=== PATIENT | male | born 1940 | race Caucasian/White ===

== ENCOUNTER 2018-02-12 05:50 | Day surgery (SDC) | payer BC, MEDICARE ==
[2018-02-11 12:21] LABS: BASOPHILS % (AUTO) 0.3 % (0-1); EOSINOPHILS # (AUTO) 0.1 X10'3 (0-0.9); HEMATOCRIT 45.9 % (42.0-52.0); HEMOGLOBIN 15.6 g/dl (14.0-17.9); LYMPHOCYTES # (AUTO) 1.5 X10'3 (1.1-4.8); LYMPHOCYTES % (AUTO) 31.6 % (21-51); MEAN CORPUSCULAR HEMOGLOBIN 31.7 PG (27.0-31.0); MEAN CORPUSCULAR VOLUME 93.1 FL (78-98); MONOCYTES # (AUTO) 0.4 X10'3 (0-0.9); MONOCYTES % (AUTO) 7.7 % (2-12); NEUTROPHILS # (AUTO) 2.8 X10'3 (1.8-7.7); NEUTROPHILS % (AUTO) 58.4 % (42-75); PLATELET COUNT 167 X10'3 (140-440); RED BLOOD COUNT 4.93 X10'6 (4.70-6.10); RED CELL DISTRIBUTION WIDTH 13.6 % (11.5-14.5); WHITE BLOOD COUNT 4.8 X10'3 (4.5-11.0)
[2018-02-11 12:34] LABS: PARTIAL THROMBOPLASTIN TIME 26 SECONDS (22-32); PROTHROMBIN TIME 10.3 SECONDS (9.0-12.0)
[2018-02-11 12:40] LABS: ANION GAP 9 (8-16); BLOOD UREA NITROGEN 22 MG/DL (7-18); BUN/CREATININE RATIO 19.8 (5.4-32.0); CHLORIDE 104 MMOL/L (99-107); CREATININE 1.11 MG/DL (0.60-1.10); GLUCOSE 101 MG/DL (70-104); POTASSIUM 4.1 MMOL/L (3.5-5.1); SODIUM 139 MMOL/L (135-145); TOTAL CARBON DIOXIDE 25.6 MMOL/L (24-32); eGFR 64 ML/MIN
[2018-02-11 12:41] LABS: ALBUMIN 3.7 G/DL (3.4-5.0); CALCIUM 8.8 MG/DL (8.5-10.1)
[2018-02-12] VITALS (12 sets, daily range): BP systolic 110–131; BP diastolic 57–77
[~2018-02-12] VITALS: Ht 180.3 cm; Wt 98.7 kg
[2018-02-12] MEDS ORDERED: TEST5GEL2 TOP (06:00)
[2018-02-12] MEDS ORDERED: MULT1TAB74 PO (06:00)
[2018-02-12] MEDS ORDERED: LORazepam 0.5 MG tablet PO PRN (06:15)
[2018-02-12] MEDS ORDERED: normal saline 1000ml 1,000 ML IV SCH (06:15)
[2018-02-12] MEDS ORDERED: diphenhydrAMINE 25mg capsule PO PRN (06:15)
[2018-02-12] MEDS ORDERED: nitroGLYCERIN-Tridil 50MG/D5W 250 ML IV ONE (07:36)
[2018-02-12] MEDS ORDERED: fentaNYL/PF 50MCG/1 ML 2ML syringe ONE (07:37)
[2018-02-12] MEDS ORDERED: midazolam 2 mg/2 ml injection ONE (07:37)
[2018-02-12] MEDS ORDERED: LIDOcaine 1% w/EPI 1:100,000 30ml vial (MDV) ONE (07:37)
[2018-02-12] MEDS ORDERED: iohexol 350 MG/ML 50ML vial IV ONE (07:37)
[2018-02-12] MEDS ORDERED: iohexol 350MG/ML 100ml bottle IV ONE (07:37)
[2018-02-12] MEDS ORDERED: heparin 1,000unit/ml 10ml vial 10 ML ONE (07:37)
== END 2018-02-12 15:02 | disposition home or self-care (01) ==
LOC: SSTAY O 05:50
PROVIDERS: ATTEND Internal Medicine Cardiovascular Disease
DX: I25.10 Atherosclerotic heart disease of native coronary artery without angina pectoris (principal); G47.33 Obstructive sleep apnea (adult) (pediatric); N40.0 Benign prostatic hyperplasia without lower urinary tract symptoms; Z79.899 Other long term (current) drug therapy; Z96.619 Presence of unspecified artificial shoulder joint; Z96.649 Presence of unspecified artificial hip joint; Z96.659 Presence of unspecified artificial knee joint; Z82.49 Family history of ischemic heart disease and other diseases of the circulatory system
CPT/HCPCS: 36415; 80048; 85025; 85610; 85730; 93005; 93458; 99152; 99153; A6257; C1769; J1644; J2250; J3010; J3490; J7030; Q0163; Q9967; A4620

== ENCOUNTER 2019-12-04 15:17 | Emergency (ER) | payer BC, MEDICARE ==
[~2019-12-04] VITALS: Ht 180.3 cm; Wt 87.2 kg
[~2019-12-04 15:17] MED LIST: MULT1TAB74 PO; TEST5GEL2 TOP
[2019-12-04 15:48] VITALS: BP 113/71
[2019-12-04] MEDS ORDERED: TETanus/Pertussis (Acell)/Diphther VAC/PF (Tdap-Adult) 0.5ml syringe IMVAC ONE (17:20)
[2019-12-04] MEDS ORDERED: bacitracin 15gm ointment TP ONE (17:20)
== END 2019-12-04 18:35 | disposition home or self-care (01) ==
LOC: ER 15:18
DX: S09.90XA Unspecified injury of head, initial encounter (principal); R51 Headache; Z79.899 Other long term (current) drug therapy; W01.198A Fall on same level from slipping, tripping and stumbling with subsequent striking against other object, initial encounter; Y93.89 Activity, other specified; Y92.89 Other specified places as the place of occurrence of the external cause; Y99.8 Other external cause status
CPT/HCPCS: 70450; 90471; 90715; 99284

== ENCOUNTER 2022-05-30 12:13 | Emergency (ER) | payer MEDICARE ==
[~2022-05-30] VITALS: Ht 180.3 cm; Wt 93.0 kg
[~2022-05-30 12:13] MED LIST changes: +MULT-620 PO; -MULT1TAB74 PO
--- NOTE | 2022-05-30 12:55 | NUR ---
PT IN ROOM 18 ON COVID PRECAUTIONS, ON 2L 02 NASAL CANNULA, RESP EVEN AND UNLABORED, SKIN P/W/D, AT BEDSIDE PT HAS ALZHEIMERS AND IS CONFUSED
[2022-05-30 13:38] LABS: BASOPHILS % (AUTO) 0.3 % (0-1); EOSINOPHILS % (AUTO) 0.7 % (0-6); HEMATOCRIT 48.5 % (42.0-52.0); HEMOGLOBIN 16.6 g/dl (14.0-17.9); LYMPHOCYTES # (AUTO) 0.9 X10'3 (1.1-4.8); LYMPHOCYTES % (AUTO) 15.2 % (21-51); MEAN CORPUSCULAR HEMOGLOBIN 30.9 PG (27.0-31.0); MEAN CORPUSCULAR HGB CONC 34.2 g/dL (33.0-36.5); MEAN CORPUSCULAR VOLUME 90.3 FL (78-98); MEAN PLATELET VOLUME 8.3 FL (7.4-10.4); MONOCYTES % (AUTO) 15.7 % (2-12); NEUTROPHILS # (AUTO) 4.2 X10'3 (1.8-7.7); NEUTROPHILS % (AUTO) 68.1 % (42-75); PLATELET COUNT 146 X10'3 (140-440); RED BLOOD COUNT 5.37 X10'6 (4.70-6.10); RED CELL DISTRIBUTION WIDTH 14.1 % (11.5-14.5); WHITE BLOOD COUNT 6.1 X10'3 (4.5-11.0)
[2022-05-30 13:48] LABS: ALANINE AMINOTRANSFERASE 18 U/L (12-78); ALBUMIN 3.4 G/DL (3.4-5.0); ALBUMIN/GLOBULIN RATIO 0.8 (1.1-1.5); ALKALINE PHOSPHATASE 60 IU/L (46-116); ANION GAP 9 (8-16); BILIRUBIN,TOTAL 0.8 MG/DL (0.1-1.0); BLOOD UREA NITROGEN 19 MG/DL (7-18); BUN/CREATININE RATIO 16.1 (5.4-32.0); CALCIUM 8.8 MG/DL (8.5-10.1); CHLORIDE 100 MMOL/L (99-107); CREATININE 1.18 MG/DL (0.60-1.10); GLUCOSE 110 MG/DL (70-104); SODIUM 136 MMOL/L (135-145); TOTAL CARBON DIOXIDE 26.7 MMOL/L (24-32); TOTAL PROTEIN 7.5 G/DL (6.4-8.2); eGFR 59 ML/MIN
[2022-05-30 13:56] LABS: C-REACTIVE PROTEIN 7.76 MG/DL (0.0-0.5)
[2022-05-30 14:10] LABS: ASPARTATE AMINO TRANSFERASE 30 U/L (10-37); POTASSIUM 4.3 MMOL/L (3.5-5.1)
--- NOTE | 2022-05-30 14:15 | NUR ---
DR CA HAS EVALUATE PT, TURNED 02 OFF, PT IS TOLERATING WELL 95% ON ROOM AIR,
[2022-05-30] MEDS ORDERED: BEBTELOVIMAB 175 MG/2 ML VIAL IV ONE (15:15)
[2022-05-30] MEDS ORDERED: AZIT250T2 PO (15:18)
[2022-05-30] MEDS ORDERED: dexamethasone 4mg tablet PO ONE (15:20)
[2022-05-30] MEDS ORDERED: azithromycin 250mg tablet PO ONE (15:20)
[2022-05-30 17:28] VITALS: BP 123/71
== END 2022-05-30 17:29 | disposition home or self-care (01) ==
LOC: ER 12:14
DX: U07.1 COVID-19 (principal); R06.02 Shortness of breath; R09.02 Hypoxemia; Z79.2 Long term (current) use of antibiotics; Z79.899 Other long term (current) drug therapy; F03.90 Unspecified dementia, unspecified severity, without behavioral disturbance, psychotic disturbance, mood disturbance, and anxiety
CPT/HCPCS: 36415; 71045; 80053; 83605; 83880; 84145; 85025; 85379; 86140; 87040; 87502; 87503; 87635; 93005; 99285; C9803; M0222; Q0222